=== PATIENT | male | born 1955 | race Caucasian/White ===

== ENCOUNTER 2018-12-01 10:51 | Emergency (ER) | payer MEDICARE, BC ==
[2018-12-01 11:30] VITALS: BP 129/71
--- NOTE | 2018-12-01 12:24 | ED ---
Throat Pain/Nasal Congestion - HPI Summary HPI Summary: 63 yr old male with the complaint of left ear feels plugged. He states he jumped into water the other day and he has felt like his left ear is plugged since then. He has no other complaints. No nasal drainage, no URI symptoms. Symptoms are moderate. - History of Current Complaint Chief Complaint: UCEar Time Seen by Provider: 12/01/18 11:40 - Allergies/Home Medications Allergies/Adverse Reactions: Allergies Allergy/AdvReac Type Severity Reaction Status Date / Time No Known Allergies Allergy Verified 12/01/18 11:17 Home Medications: Home Medications Losartan Potassium [Cozaar] 50 mg PO DAILY 12/01/18 [History Confirmed 12/01/18] Potassium Chlor TAB* [Klor Con ER TAB*] 20 meq PO BID 12/01/18 [History Confirmed 12/01/18] levETIRAcetam TAB* [Keppra TAB*] 500 mg PO BID 12/01/18 [History Confirmed 12/01] PMH/Surg Hx/FS Hx/Imm Hx Endocrine/Hematology History: Reports: Hx Diabetes - DIET CONTROLLED Cardiovascular History: Reports: Hx Hypercholesterolemia, Hx Hypertension Denies: Hx Pacemaker/ICD Respiratory History: Denies: Hx Asthma GI History: Reports: Hx Gastroesophageal Reflux Disease History: Denies: Hx Dialysis, Hx Renal Disease Sensory History: Reports: Hx Contacts or Glasses Denies: Hx Hearing Aid Opthamlomology History: Reports: Hx Contacts or Glasses Psychiatric History: Denies: Hx Panic Disorder - Surgical History Surgery Procedure, Year, and Place: carpal tunnel, patient born with cataract rt eye. Can see vague colors and shapes with rt eye Infectious Disease History: No Infectious Disease History: Denies: Traveled Outside the [place] in Last 30 Days - Family History Known Family History: Positive: None - Social History Alcohol Use: Rare Substance Use Type: Reports: None Smoking Status (MU): Never Smoked Tobacco Review of Systems Constitutional: Negative Positive: Other - left ear plugged. All Other Systems Reviewed And Are Negative: Yes Physical Exam Triage Information Reviewed: Yes Vital Signs On Initial Exam: Initial Vitals Temp Pulse Resp BP Pulse Ox 98 F 55 16 129/71 97 12/01/18 11:22 12/01/18 11:22 12/01/18 11:22 12/01/18 11:22 12/01/18 11:22 Vital Signs Reviewed: Yes Appearance: Positive: Well-Appearing, No Pain Distress Skin: Positive: Warm, Skin Color Reflects Adequate Perfusion Head/Face: Positive: Normal Head/Face Inspection Eyes: Positive: EOMI, [place] ENT: Positive: Other - left external canal with cerumen impaction Neck: Positive: Nontender Respiratory/Lung Sounds: Positive: Clear to Auscultation, Breath Sounds Present Cardiovascular: Positive: RRR. Negative: Murmur Abdomen Description: Negative: Distended Musculoskeletal: Positive: Strength/ROM Intact Neurological: Positive: Sensory/Motor Intact, Alert, Oriented to Person Place, Time, CN Intact II-III, Speech Normal Psychiatric: Positive: Normal Diagnostics - Vital Signs Vital Signs Temp Pulse Resp BP Pulse Ox 12/01/18 11:22 98 F 55 16 129/71 97 - Laboratory Lab Statement: Any lab studies that have been ordered have been reviewed, and results considered in the medical decision making process. EENT Course/Dx - Course Course Of Treatment: 63 yr old with left ear cerumen impaction. The ear was successfully irrigated by nursing and wax is gone. - Diagnoses Provider Diagnoses: Impacted cerumen of left ear Discharge - Sign-Out/Discharge Documenting (check all that apply): Patient Departure All imaging exams completed and their final reports reviewed: No Studies - Discharge Plan Condition: Good Disposition: HOME Patient Education Materials: Cerumen Impaction (ED) Referrals: Fannie Barron MD [Primary Care Provider] - 2 Days - Billing Disposition and Condition Condition: GOOD Disposition: Home
== END 2018-12-01 12:29 | disposition home or self-care (01) ==
LOC: UCCORT 10:51
DX: H61.22 Impacted cerumen, left ear (principal); E11.9 Type 2 diabetes mellitus without complications; I10 Essential (primary) hypertension
CPT/HCPCS: 99202; G0463

== ENCOUNTER 2019-05-31 21:33 | Emergency (ER) | payer MEDICARE, BC ==
--- OUTSIDE RECORDS SUMMARY | 2019-05-31 21:45 | XMS REPORT | Continuity of Care Document ---
:1955 External Reference #:[id number] Author Name Fannie Barron MD Address [address] [place] [address] Care Team Providers Name Role Phone Diego Akers MD - Neurology Care Team Information Broadcast Field Supervisor [phone] Deb Tabor, N.P. Care Team Information Broadcast Field Supervisor Unavailable Jax Oh MD - Care Team Information Broadcast Field Supervisor [phone] Orthopaedic Surgery Problems Active Problems Provider Date Vitamin D deficiency Zeus Crawford DO Onset: 08/06/2011 Gastroesophageal reflux disease Zeus Crawford DO Onset: 12/01/2010 Mixed hyperlipidemia Zeus Crawford DO Onset: 12/01/2010 Epilepsy Zeus Crawford DO Onset: 01/13/2015 Type 2 diabetes mellitus Zeus Crawford DO Onset: 01/19/2016 Essential hypertension Zeus Crawford DO Onset: 05/23/2017 Blind left eye, normal vision right eye Zeus Crawford DO Onset: 2016 Social History Type Date Description Comments Sex Unknown Tobacco Use Start: Unknown Never Smoked Cigarettes Smoking Status Reviewed: 04/06/19 Never Smoked Cigarettes ETOH Use 04/06/2019 Currently consumes alcohol 2 beers per week Tobacco Use Start: Unknown Patient has never smoked Allergies, Adverse Reactions, Alerts Description No Known Drug Allergies Medications Active Medications SIG Qnty Indications Ordering Date Provider Losartan Potassium 1 by mouth every 90tabs I10 Fannie Barron, 01/06/2018 100mg day MD Tablets Freestyle Lite Test use as directed 100units E11.9 Fannie Barron, 2017 once daily and MD Strips as needed Freestyle Lancets as directed once 100units E11.9 Fannie Barron, 2017 Misc daily and as MD needed Freestyle Lite Test test daily and 100units E11.9 Yvette, 09/19/2015 as needed DO Zeus Strips dxE11.9 Potassium Chloride ER take two 180caps E87.6 Renee Barrondy, 01/13/2015 capsules by MD 10Meq Capsules ER mouth daily Simvastatin 1 po qd E78.2 Deb Tabor, 11/04/2010 10mg Tablets N.P. Cinnamon 2 qd Unknown 10/22/2010 500mg Capsules Chlorthalidone take one tablet 90tabs I10 Renee Barrondy, 10/22/2010 25mg by mouth once MD Tablets daily Levetiracetam take 1 tablet by G40.909 Diego Akers, 500mg mouth twice a MD Tablets day Aspirin Ec once daily E11.9 Fannie Barron, 81mg Tablets MD [place] Omeprazole take one capsule 90caps K21.9 Fannie Barron, 20mg Capsules by mouth once MD daily as needed Immunizations CPT Code Status Date Vaccine Reaction Lot # [id number] Given 03/18/2019 Shingrix (Shingles) Zoster Vaccine HZV, Recombinant, Subunit, Adj 87862 Given 03/18/2019 Fluzone Highdose Age 65 And Over Preservative & Antibiotic Free 16166 Given 10/16/2018 Shingrix (Shingles) Zoster Vaccine HZV, Recombinant, Subunit, Adj 21501 Given 01/06/2018 Pneumococcal 23 Immunization Pt tolerated well [id number] Adult Or Immunosuppressed Patient Q2035 Given 02/21/2016 Afluria Imunization Given At Pharmacy RA/PW Q2035 Given 03/25/2015 Afluria Imunization 45790 Given 07/22/2014 Tdap (Adacel) Ages 7 And [id number] Above Only 25160 Given 03/29/2014 Afluria Or Fluvirin Flu Vac KINNEYs Intramuscular 25568 Given 03/20/2013 Afluria Or Fluvirin Flu Vac Intramuscular 66132 Given 05/05/2012 Afluria Or Fluvirin Flu Vac Intramuscular 11053 Given 04/06/2011 Afluria Or Fluvirin Flu Vac Intramuscular Q2039 Refused 09/11/2018 Flu Vaccine NOS Pt says he did not get a flu shot this year. [facility] 09/11/18 [id number] Refused 04/08/2018 Shingrix (Shingles) Zoster Vaccine HZV, Recombinant, Subunit, Adj Q2039 Refused 01/06/2018 Flu Vaccine NOS [id number] Refused 09/20/2017 Afluria Or Fluvirin Flu Vac Intramuscular Vital Signs Date Vital Result Comment 04/06/2019 8:50am Weight 211.00 lb Heart Rate 70 /min BP Systolic 138 mmHg BP Diastolic 72 mmHg Respiratory Rate 18 /min Height 65.75 inches 5'5.75" 5'5.75 [facility] 09/11/18 BMI (Body Mass Index) 34.3 kg/m2 09/11/2018 8:49am Weight 212.56 lb Heart Rate 76 /min BP Systolic 136 mmHg BP Diastolic 82 mmHg Respiratory Rate 18 /min Height 65.75 inches 5'5.75 [facility] 09/11/18 BMI (Body Mass Index) 34.6 kg/m2 Results Test Acquired Date Facility Test Result H/L Range Note Lipid Treatment 04/02/2019 [facility] Cholesterol 167 mg/dL 50-199 1 Triglycerides 148 mg/dL 30-200 HDL 42 mg/dL 29-71 2 Chol/ HDL Ratio 4.0 ratio 4.0-6.7 VLDL 30 mg/dL High 2-29 LDL (Calc) 96 mg/dL 20-99 3 Alt 19 U/L 3-42 Ast 19 U/L 8-42 Basic (BMP) 04/02/2019 [facility] Sodium 139 mmol/L 135-146 4 Potassium 3.8 mmol/L 3.5-5.2 Chloride# 103 mmol/L 97-110 5 Carbon Dioxide 28 mmol/L 24-34 Glucose 139 mg/dL High 70-105 BUN 25 mg/dL 6-26 Creatinine 0.7 mg/dL 0.5-1.4 Calcium 9.1 mg/dL 8.5-10.5 6 Female Egfr 85 >60 7 Male Egfr 97 >60 8 Anion Gap 8 mmol/L 5-15 9 Hemoglobin A1c 04/02/2019 [facility] Hemoglobin A1c 6.7 % High 4.1-5.9 Estimated Average Glucose Calc 146 mg/dL High 71-140 Laboratory test finding 04/02/2019 [facility] Vitamin D 25 Hydroxy 35 ng/mL 30-100 10 CBC with Auto Diff-fcmg 04/02/2019 [facility] WBC 6.0 K/uL 4.1-11.0 RBC 4.99 M/uL 4.60-6.10 Hemoglobin 15.3 gm/dL 13.5-18.0 Hematocrit 44.7 % 41.0-53.0 MCV 89.6 fL 80.0-97.0 MCH 30.7 pg 27.0-32.0 MCHC 34.3 g/dL 32.0-36.0 RDW 13.3 % 11.5-14.5 PLT Count 216 K/ul 140-400 MPV 9.7 FL 7.1-10.7 Neutrophil 46.8 % 35.0-75.0 Lymphocyte 38.1 % 16.0-52.0 Monocyte 10.0 % 2.0-10.0 Eosinophil 4.5 % 0.0-5.0 Basophil 0.6 % 0.0-4.0 Abs Neutrophils 2.8 K/uL 2.1-8.0 Abs Lymphocytes 2.3 K/uL 0.8-5.5 Abs Monocytes 0.6 K/uL 0.1-1.0 Abs Eosinophils 0.3 K/uL 0.0-0.5 Abs Basophils 0.0 K/uL 0.0-0.3 Laboratory test finding 04/02/2019 [facility] TSH 2.04 uIU/mL 0.35-4.94 PSA 0.450 ng/mL 0.000-4.000 11 CBS W/Automated 02/07/2019 [facility] White Blood 9.1 K/ uL Normal 3.4-10.5 12 Diff (315)- - Count Red Blood Count 4.95 M/uL Normal 4.20-5.80 Hemoglobin 15.5 gm/dL Normal 12.8-17.0 Hematocrit 43.5 % Normal 38.0-48.0 Mean Cell Volume 87.9 fl Normal 80.0-96.0 Mean Corpuscular HGB 31.3 pg Normal 27.0-33.0 Mean Corpuscular HGB Conc 35.6 g/dL Normal 31.7-36.0 Platelet Count 210 K/uL Normal 155-360 Red Cell Distri Width SD 41.9 fl Normal 36-51 Red Cell Distri Width %CV 13.2 % Normal 11.6-15.8 Mean Platelet Volume 11.1 fl High 6.6-10.6 Neut% 64.3 % Normal 33.0-73.0 Lymph % 23.0 % Normal 20.0-42.0 [place] % 8.1 % Normal 0.0-10.0 Eo% 2.8 % Normal 0.0-6.6 Bas% 0.8 % Normal 0.0-1.1 Immature Grans 1.0 % Normal 0.0-5.0 NRBC % 0.0 /100WBC < 10/ 100 WBC Neut# 5.87 K/uL Normal 1.8-7.0 Lymph # 2.10 K/uL Normal 1.0-4.0 [place] # 0.74 K/uL Normal 0.0-0.8 Eos # 0.26 K/uL Normal 0.0-0.5 Baso # 0.07 K/uL Normal 0.0-0.1 Immature Grans Absolute 0.09 K/uL NRBC # 0.00 K/uL Urinalysis With 02/07/2019 [facility] Urine Color Yellow Yellow Microscopic (315)- - Urine Clarity Clear Clear Urine Glucose - Dipstick NEGATIVE mg/dL Negative Urine Bilirubin - Dipstick NEGATIVE Negative Urine Ketone NEGATIVE mg/dL Negative Urine Specific [place] 1.026 Normal 1.010-1.030 Urine Blood NEGATIVE 0-2 Urine PH 6.5 Normal 6.5-7.5 Urine Protein - Dipstick TRACE mg/dL Negative Urine Urobilinogen - Dipstick 2.0 mg/dL < 2.0 Urine Nitrite - Dipstick NEGATIVE Negative Urine Leuk Esterase TRACE Abnormal Negative Urine RBC 0-2 rbc/hpf 0-2 Urine WBC 6-10 wbc/hpf 0-5 Urine Hyaline Cast 6-10 #/lpf None Seen Urine Mucus FEW None Seen Source: URINE, CLEAN CAT <SEE NOTE> 13 Culture If 02/07/2019 [facility] Culture If CULTURE TO 14 Indicated Comment (315)- - Indicated Comment FOLLO <SEE NOTE> Source: URINE, CLEAN CAT <SEE NOTE> 15 Comprehensive Metabolic 02/07/2019 [facility] Glucose 151 mg/dL High 74-106 Panel (315)- - BUN 23 mg/dL High 7-18 Creatinine 1.0 mg/dL Normal 0.6-1.3 Glom Filtration Rate, Estimate >60 mL/min >60 If >60 mL/min >60 16 BUN/Creat 23.0 ratio Sodium 141 mmol/L Normal 136-145 Potassium 3.3 mmol/L Low 3.5-5.1 Chloride 107 mmol/L Normal 98-107 Carbon Dioxide 26 mmol/L Normal 21-32 Anion Gap 8 mEq/L Normal 8-16 Calcium 8.9 mg/dL Normal 8.5-10.1 Total Protein 7.0 g/dL Normal 6.4-8.2 Albumin 3.5 g/dL Normal 3.4-5.0 Globulin 3.5 g/dL Normal 1.9-4.3 Alb/Glob 1.0 ratio Bilirubin,Total 0.9 mg/dL Normal 0.2-1.0 Sgot/Ast 25 U/L Normal 15-37 SGPT/Alt 29 U/L Normal 12-78 Alkaline Phosphatase 71 U/L Normal 45-117 Urine Culture 02/07/2019 [facility] Urine Culture URETHRAL FRANCIS (315)- - Quantity 10,000 - 50,000 <SEE NOTE> 17 1 after 04/01 2 Per NCEP ATP III Guidelines: Results lower than 40 mg/dL are suggestive of increased risk for coronary artery disease. Results > or = to 60 mg/dL are considered a negative risk factor. 3 Per NCEP ATP III Guidelines: Normal Population <130 Patients with medical conditions: CHD/DM Optimal: <100 Borderline high: 130-159 High: 160-189 Very high: >189 4 Updated reference range on new analyzer 5 Updated reference range on new analyzer 6 Updated reference range 10-01-2018 7 Concerning GFR Guidelines for Americans: Normal function or mild renal disease, if clinically at risk: >/= 60 mL/min Moderately decreased: 30-59 Severely decreased: 15-29 Renal failure: <15 There is reduced accuracy above 60ml/min/1.73 m squared, but the numeric value may be clinically useful in the near 60 range 8 Concerning GFR Guidelines: Normal function or mild renal disease, if clinically at risk: >/= 60 mL/min Moderately decreased: 30-59 Severely decreased: 15-29 Renal failure: <15 There is reduced accuracy above 60ml/min/1.73 m squared, but the numeric value may be clinically useful in the near 60 range Glomerular Filtration Rate (GFR) is estimated based on the CKD-EPI equation, which assumes a steady state for creatinine as recommended by the National Kidney Disease Education Program in conjunction with the National Institutes of Health and the National Kidney Foundation. Clinical conditions in which it may be necessary to measure GFR by using clearance methods include extremes of age and body size, severe malnutrition or obesity, diseases of skeletal muscle, paraplegia or quadriplegia, vegetarian diet, rapidly changing kidney function, and calculation of the dose of potentially toxic drugs that are excreted by the kidneys. 9 Updated Reference Range 10 Clinical Guidelines for recommended serum 25(OH)Vitamin D Deficient at less than 20 ng/mL Insufficient at 20 to <30 ng/mL Sufficient at 30-100 ng/mL Toxicity at greater than 100 ng/mL 11 Beginning 07/29/06 PSA values assayed at [facility] uses chemiluminescence methodology manufactured by [employer] for use on the DXI analyzer. Values obtained with different assay methods or kits can not be used interchangeably. Serum PSA measurement is not an absolute test for malignancy. The PSA value should be used in conjunction with information available from clinical evaluation and other diagnostic procedures. 12 BACK/ ABD/CHEST TRAUMA 13 URINE, CLEAN CATCH 14 CULTURE TO FOLLOW 15 URINE, CLEAN CATCH 16 Note: Persistent reduction for 3 months or more in an eGFR <60 mL/min/1.73 m2 defines CKD. Patients with eGFR values >/=60 mL/min/1.73 m2 may also have CKD if evidence of persistent proteinuria is present. The original MDRD equation for estimated GFR is not valid for patients less than 18 years of age. Additional information may be found at www.kdoqi.org. 17 10,000 - 50,000 CFU/mL Procedures Date Code Description Status 02/21/2017 21450405 Colonoscopy Completed Medical Devices Description No Information Available Encounters Description No Information Available Assessments Date Code Description Provider 04/06/2019 E66.9 Obesity, unspecified Fannie Barron MD 04/06/2019 E78.2 Mixed hyperlipidemia Fannie Barron MD 04/06/2019 E11.9 Type 2 diabetes mellitus without Fannie Barron MD complications 04/06/2019 E55.9 Vitamin D deficiency, unspecified Fannie Barron MD 04/06/2019 I10 Essential (primary) hypertension Fannie Barron MD 04/06/2019 K21.9 Gastro-esophageal reflux disease without Fannie Barron MD esophagitis 04/06/2019 G40.909 Epilepsy, unspecified, not intractable, Fannie Barron MD without status epile 04/06/2019 H54.42A3 Blindness LEFT eye category 3, normal vision Fannie Barron MD RIGHT eye 04/06/2019 S28.0xxA Crushed chest, initial encounter Fannie Barron MD 04/06/2019 M25.569 Pain in unspecified knee Fannie Barron MD 04/06/2019 Z68.34 Body mass index (BMI) 34.0-34.9, adult Fannie Barron MD 04/02/2019 E78.2 Mixed hyperlipidemia Fannie Barron MD 04/02/2019 E78.2 Mixed hyperlipidemia Schedule, Laboratory 04/02/2019 E11.9 Type 2 diabetes mellitus without Fannie Barron MD complications 04/02/2019 E11.9 Type 2 diabetes mellitus without Schedule, Laboratory complications 04/02/2019 E55.9 Vitamin D deficiency, unspecified Fannie Barron MD 04/02/2019 E55.9 Vitamin D deficiency, unspecified Schedule, Laboratory 04/02/2019 I10 Essential (primary) hypertension Fannie Barron MD 04/02/2019 I10 Essential (primary) hypertension Schedule, Laboratory 04/02/2019 Z12.5 Encounter for screening for malignant Fannie Barron MD neoplasm of prostate 04/02/2019 Z12.5 Encounter for screening for malignant Schedule, Laboratory neoplasm of prostate 04/02/2019 E78.2 Mixed hyperlipidemia [facility] 04/02/2019 E11.9 Type 2 diabetes mellitus without [facility] complications 04/02/2019 E55.9 Vitamin D deficiency, unspecified [facility] 04/02/2019 I10 Essential (primary) hypertension [facility] 04/02/2019 Z12.5 Encounter for screening for malignant [facility] neoplasm of prostate Plan of Treatment Future Appointment(s):09/30/2019 7:45 am - Schedule, Laboratory at [facility]2019 9:00 am - Fannie Barron MD at [facility]04/06/2019 - Fannie Barron MDE66.9 Obesity, unspecifiedComments:Counseled about strategies for weight loss and the impact of weight on chronic medical problems.Work on healthy lifestyle, with regular exercise (20 min daily will help) and eat a healthy diet. Formal diet plans work best.E78.2 Mixed hyperlipidemiaNew Labs:Lipid Treatment, Scheduled: 09/30/19Comments:doing well on current medication - continue this. on statin - liver enzymes are normal. continue current medication to minimize cardiovascular riskFollow up:6-months follow up and MEDICARE WELLNESS EXAM with fasting labs prior.E11.9 Type 2 diabetes mellitus without complicationsNew Labs: Basic (BMP), Scheduled: 09/30/19Hemoglobin A1c, Scheduled: 09/30/19Comments: Diabetes mellitus improved and doing well. Advised to diet and exercise. Fasting blood sugar 139, HbA1c 6.7.E55.9 Vitamin D deficiency, unspecifiedComments:He was recommended to continue taking Vitamin D supplements daily. continue [id number] Essential (primary) hypertensionComments:Blood pressure at goal on current medication. However, optimum control is blood pressure of less than 120/80. Do not add salt to your food. Encourage regular exercise and healthy diet to improve blood pressure.K21.9 Gastro-esophageal reflux disease without esophagitisComments:He is taking the omeprazole intermittently.G40.909 Epilepsy, unspecified, not intractable, without status epileNew Labs:Keppra (Levetiracetam)-RL, Scheduled: 09/30/19Comments:This is followed by Dr. Akers. He is on Keppra with benefit. We will check Keppra level during the next office visit.H54.42A3 Blindness LEFT eye category 3, normal vision RIGHT eyeComments:This is congenital. He will continue care with Dr. Perez.S28.0xxA Crushed chest, initial encounterComments:The patient's MRI is normal without any abnormalities. We will continue to follow. He was advised to do physical therapy and stretching exercise to strengthen his muscles.M25.569 Pain in unspecified kneeComments:The patient was recommended to do some exercise daily. He was also advised to do some physical therapy.Z68.34 Body mass index (BMI) 34.0-34.9, adultComments:The BMI is the ratio of height to weight. Weight loss is desirable. Your goal BMI is between 18.9 and 25. Your are overweight. Work on improving your diet to help with weight loss. Functional Status Description No Information Available Mental Status Description No Information Available Referrals Description No Information Available
--- NOTE | 2019-05-31 21:48 | UC ---
Abdominal Pain Male HPI - HPI Summary HPI Summary: Patient is 64 year old gentleman , who present today to the urgent care with left lower abdominal pain for past 2 days. Symptoms started about 2 days ago and progressively got worse today. Pain is localized in the left lower quadrant and radiates down into the groin. Denies any left low back pain or testicular pain.. There is no groin swelling or testicular swelling.. He does report there is associated nausea but denies any vomiting. No diarrhea. Able to tolerate food by mouth well, had last bowel movement in the evening today. No blood or mucus in stool Denies any new food or anybody sick with similar symptoms Denies any fever, chills, cough, chest pain or shortness of breath . No urinary symptoms or hematuria. He tried some Pepto-Bismol without much relief. - History of Current Complaint Stated Complaint: LEFT SIDE ABDOMINAL PAIN X2 DAYS Time Seen by Provider: 05/31/19 21:38 Hx Obtained From: Patient - allow - Allergies/Home Medications Allergies/Adverse Reactions: Allergies Allergy/AdvReac Type Severity Reaction Status Date / Time No Known Allergies Allergy Verified 05/31/19 21:49 PMH/Surg Hx/FS Hx/Imm Hx - Additional Past Medical History Additional PMH: Past Medical History : Hypertension maintained with dietary measures. Past Surgical History: Carpal tunnel surgery, congenital cataract Family History : non contributory Social History : Rare alcohol, non smoker, no drug use. Previously Healthy: Yes - Surgical History Surgical History: Yes Surgery Procedure, Year, and Place: carpal tunnel, patient born with cataract rt eye. Can see vague colors and shapes with rt eye - Family History Known Family History: Positive: None, Non-Contributory - Social History Alcohol Use: Rare Substance Use Type: None Smoking Status (MU): Never Smoked Tobacco - Immunization History Most Recent Influenza Vaccination: Fall 2013 Most Recent Tetanus Shot: unknown Most Recent Pneumonia Vaccination: never had Review of Systems All Other Systems Reviewed And Are Negative: Yes Constitutional: Positive: Negative Skin: Positive: Negative Eyes: Positive: Negative ENT: Positive: Negative Respiratory: Positive: Negative Cardiovascular: Positive: Negative Gastrointestinal: Positive: Abdominal Pain, Nausea. Negative: Vomiting, Diarrhea Genitourinary: Positive: Negative Motor: Positive: Negative Neurovascular: Positive: Negative Musculoskeletal: Positive: Negative Neurological: Positive: Negative Psychological: Positive: Negative Is Patient Immunocompromised?: No Physical Exam - Summary Physical Exam Summary: Physical Exam: Const: Appears well. No signs of apparent distress present. Alert and oriented x 3. Musculo: Walks with a normal gait. Head/Face: Atraumatic, normocephalic on inspection. Eyes: EOMI and PERRLA in both eyes. Conjunctivae clear. No discharge noted ENT: Hearing normal Respiratory: Respirations are unlabored. Lungs clear to auscultation bilaterally, no wheezing , rhonchi or rales noted . CVS: Regular rate and Rhythm, S1S2 normal , no murmurs identified. Extremities: Peripheral circulation is grossly normal. Pulses 2+ Abdomen : Soft , slightly distended, tenderness to palpation is noted at the left lower quadrant, Bowel sounds present . No guarding , rebound tenderness or rigidity noted. exam: No appreciable hernia, normal appearance of the testicles without any swelling or tenderness. Skin: No lesions or rash located on the upper extremities or on the lower extremities. Neuro: Cranial nerves II to XII intact, motor and sensory intact. DTR Intact bilaterally. Mood is normal. Affect is normal. Triage Information Reviewed: Yes Vital Signs Reviewed: Yes Abd Pain Male Course/Dx - Course Course Of Treatment: During the visit today, we discussed that his symptoms can be secondary to diverticulitis versus ureteric calculi. Since CT with contrast is not available. Patient needs additional testing, thus ER transfer advised and patient agrees. Report called to the ER provider(Dr. okeefe) at [facility], advised provider of the history, physical examination, and duration of illness and labs/imaging so far and the need for definitive management. Patient expressed understanding . He will drive to the ER via private car - Differential Dx/Clinical Impression Differential Diagnosis/HQI/PQRI: Ureteral Stone Provider Diagnosis: Diverticulitis Discharge ED - Sign-Out/Discharge Documenting (check all that apply): Patient Departure All imaging exams completed and their final reports reviewed: No Studies - Discharge Plan Condition: Stable Disposition: HOME-RECOMMEND TO ED Patient Education Materials: Diverticulitis (ED), Kidney Stones (ED) Referrals: Fannie Barron MD [Primary Care Provider] - If Needed Additional Instructions: Please immediately go to the ER for further evaluation and testing. I have informed ER provider at [facility]. Your blood pressure as high in the clinic today, please follow up with your primary care doctor for recheck - Billing Disposition and Condition Condition: STABLE Disposition: Home-Recommend to ED
[2019-05-31 21:49] VITALS: BP 171/87
== END 2019-05-31 22:11 | disposition home health service (06) ==
LOC: UCCORT 21:33
DX: K57.92 Diverticulitis of intestine, part unspecified, without perforation or abscess without bleeding (principal); I10 Essential (primary) hypertension
CPT/HCPCS: 99212; G0463